=== PATIENT | female | born 1950 | race Caucasian/White ===

== ENCOUNTER → 2023-06-10 13:13 | Outpatient (REF) | payer MEDICARE, SELFPAY ==
[2023-06-10 14:17] LABS: ALT (SGPT) 24 U/L (0-35); AST (SGOT) 24 U/L (14-36); Albumin 4.6 g/dl (3.5-5.0); Alkaline Phosphatase 82 U/L (38-126); Blood Urea Nitrogen 13 mg/dl (7-17); Calcium 9.3 mg/dl (8.4-10.2); Carbon Dioxide 25 mmol/L (22-30); Chloride 101 mmol/L (98-107); Glucose 165 mg/dl (70-99); HDL Cholesterol 54 mg/dl; LDL Cholesterol, Calculated 175 mg/dl; Potassium 4.1 mmol/L (3.5-5.1); Sodium 138 mmol/L (135-145); Total Bilirubin 1.4 mg/dl (0.2-1.3); Total Cholesterol 259 mg/dl (50-199); Total Protein 7.6 g/dl (6.3-8.2); Triglyceride 154 mg/dl (10-149); Very Low Density Lipoprotein 30 mg/dl (0-30); eGFR > 60.00
[2023-06-10 15:47] LABS: Microalbumin, Random Urine 1.4 mg/dl (0.6-1.7)
[2023-06-10 17:23] LABS: Microalbumin/creatinine Ratio 159.1 mg/g
[2023-06-11 12:10] LABS: Glycohemoglobin (HgbA1c) 8.9 % (4.0-5.6)
== END ==
LOC: REG 13:13
PROVIDERS: ATTENDING PHYSICIAN Internal Medicine Endocrinology, Diabetes & Metabolism; FAMILY PHYSICIAN Internal Medicine
DX: E11.21 Type 2 diabetes mellitus with diabetic nephropathy (principal)
CPT/HCPCS: 36415; 80053; 80061; 82043; 82570; 83036

== ENCOUNTER → 2023-10-10 08:13 | Outpatient (REF) | payer MEDICARE, SELFPAY ==
[2023-10-10 09:08] LABS: % Basophils 0.9 % (0-2); % Eosinophils 1.5 % (0-6); % Immature Granulocytes 0.6 % (0-0.5); Absolute Basophils 0.1 10^3/uL (0-0.2); Absolute Eosinophils 0.1 10^3/uL (0-0.7); Absolute Immature Granulocytes 0.1 10^3/uL (0-0.05); Absolute Lymphocytes 2.3 10^3/uL (1.2-3.4); Absolute Monocytes 0.5 10^3/uL (0.1-0.6); Absolute Neutrophils 5.8 10^3/uL (1.4-6.5); Hematocrit 42.4 % (37.0-47.0); Hemoglobin 14.4 g/dL (12.0-16.0); Mean Corpuscular Hgb 29.1 pg (27.0-31.0); Mean Corpuscular Volume 85.8 fL (81.0-99.0); Mean Platelet Volume 9.7 fL (7.4-10.4); Nucleated Red Blood Cells % 0 %; Platelet Count 314 10^3/uL (130-400); Red Blood Cell Count 4.94 10^6/uL (4.20-5.40); Red Cell Dist. Width 12.5 % (11.5-14.5); White Blood Cell Count 8.9 10^3/uL (4.8-10.8)
[2023-10-10 09:56] LABS: ALT (SGPT) 18 U/L (0-35); AST (SGOT) 22 U/L (14-36); Albumin 4.4 g/dl (3.5-5.0); Alkaline Phosphatase 93 U/L (38-126); Blood Urea Nitrogen 15 mg/dl (7-17); Calcium 9.2 mg/dl (8.4-10.2); Carbon Dioxide 26 mmol/L (22-30); Chloride 103 mmol/L (98-107); Glucose 182 mg/dl (70-99); HDL Cholesterol 48 mg/dl; LDL Cholesterol, Calculated 156 mg/dl; Potassium 4.7 mmol/L (3.5-5.1); Sodium 139 mmol/L (135-145); Total Bilirubin 0.5 mg/dl (0.2-1.3); Total Cholesterol 228 mg/dl (50-199); Triglyceride 123 mg/dl (10-149); Very Low Density Lipoprotein 24 mg/dl (0-30); eGFR > 60.00
[2023-10-10 10:12] LABS: TSH Reflex To Free T4 2.36 uIU/ml (0.47-4.68)
[2023-10-11 10:59] LABS: Glycohemoglobin (HgbA1c) 7.1 % (4.0-5.6)
== END ==
LOC: REG 08:13
PROVIDERS: ATTENDING PHYSICIAN Internal Medicine; REFERRING PHYSICIAN Internal Medicine Endocrinology, Diabetes & Metabolism
DX: I10 Essential (primary) hypertension (principal); E11.29 Type 2 diabetes mellitus with other diabetic kidney complication; E78.2 Mixed hyperlipidemia; R07.9 Chest pain, unspecified
CPT/HCPCS: 36415; 80053; 80061; 83036; 84443; 85025

== ENCOUNTER → 2023-12-26 14:24 | Outpatient (REF) | payer MEDICARE, SELFPAY | LOC: HWWDC 14:24 | PROVIDERS: ATTENDING PHYSICIAN Internal Medicine | DX: Z12.31 Encounter for screening mammogram for malignant neoplasm of breast (principal) | CPT/HCPCS: 77063; 77067 ==

== ENCOUNTER → 2024-02-09 13:14 | Outpatient (REF) | payer MEDICARE, SELFPAY ==
[2024-02-09 14:31] LABS: ALT (SGPT) 23 U/L (0-35); AST (SGOT) 24 U/L (14-36); Albumin 4.4 g/dl (3.5-5.0); Alkaline Phosphatase 80 U/L (38-126); Blood Urea Nitrogen 12 mg/dl (7-17); Carbon Dioxide 30 mmol/L (22-30); Chloride 102 mmol/L (98-107); Glucose 156 mg/dl (70-99); HDL Cholesterol 52 mg/dl; LDL Cholesterol, Calculated 134 mg/dl; Potassium 4.7 mmol/L (3.5-5.1); Sodium 142 mmol/L (135-145); Total Bilirubin 0.7 mg/dl (0.2-1.3); Total Cholesterol 208 mg/dl (50-199); Total Protein 6.9 g/dl (6.3-8.2); Triglyceride 113 mg/dl (10-149); Very Low Density Lipoprotein 22 mg/dl (0-30); eGFR > 60.00
== END ==
LOC: REG 13:14
PROVIDERS: ATTENDING PHYSICIAN Internal Medicine Endocrinology, Diabetes & Metabolism; FAMILY PHYSICIAN Internal Medicine
DX: E11.21 Type 2 diabetes mellitus with diabetic nephropathy (principal)
CPT/HCPCS: 36415; 80053; 80061; 83036

== ENCOUNTER → 2024-05-27 09:57 | Outpatient (REF) | payer MEDICARE, SELFPAY ==
[2024-05-27 11:23] LABS: Glycohemoglobin (HgbA1c) 7.3 % (4.0-5.6)
[2024-05-27 12:07] LABS: ALT (SGPT) 34 U/L (0-35); AST (SGOT) 28 U/L (14-36); Albumin 4.5 g/dl (3.5-5.0); Alkaline Phosphatase 78 U/L (38-126); Blood Urea Nitrogen 13 mg/dl (7-17); Calcium 9.5 mg/dl (8.4-10.2); Carbon Dioxide 26 mmol/L (22-30); Chloride 103 mmol/L (98-107); Glucose 132 mg/dl (70-99); HDL Cholesterol 53 mg/dl; LDL Cholesterol, Calculated 106 mg/dl; Sodium 138 mmol/L (135-145); Total Bilirubin 0.9 mg/dl (0.2-1.3); Total Cholesterol 177 mg/dl (50-199); Total Protein 6.9 g/dl (6.3-8.2); Triglyceride 94 mg/dl (10-149); Very Low Density Lipoprotein 18 mg/dl (0-30); eGFR > 60.00
== END ==
LOC: REG 09:57
PROVIDERS: ATTENDING PHYSICIAN Internal Medicine Cardiovascular Disease; FAMILY PHYSICIAN Internal Medicine; REFERRING PHYSICIAN Internal Medicine Endocrinology, Diabetes & Metabolism
DX: E78.00 Pure hypercholesterolemia, unspecified (principal); E11.21 Type 2 diabetes mellitus with diabetic nephropathy
CPT/HCPCS: 36415; 80053; 80061; 83036

== ENCOUNTER → 2024-06-11 13:30 | Outpatient (REF) | payer MEDICARE, SELFPAY | LOC: HWRAD 13:30 | PROVIDERS: ATTENDING PHYSICIAN Internal Medicine Endocrinology, Diabetes & Metabolism; FAMILY PHYSICIAN Internal Medicine | DX: M25.551 Pain in right hip (principal) | CPT/HCPCS: 73502 ==

== ENCOUNTER → 2024-10-08 10:31 | Outpatient (REF) | payer MEDICARE, SELFPAY ==
[2024-10-08 11:54] LABS: Microalb - Urine Creatinine 188.600 mg/dl
[2024-10-08 11:57] LABS: ALT (SGPT) 22 U/L (0-35); AST (SGOT) 22 U/L (14-36); Albumin 4.7 g/dl (3.5-5.0); Alkaline Phosphatase 72 U/L (38-126); Blood Urea Nitrogen 16 mg/dl (7-17); Calcium 10.1 mg/dl (8.4-10.2); Carbon Dioxide 27 mmol/L (22-30); Chloride 108 mmol/L (98-107); Glucose 133 mg/dl (70-99); Potassium 4.7 mmol/L (3.5-5.1); Sodium 140 mmol/L (135-145); Total Protein 7.4 g/dl (6.3-8.2); eGFR > 60.00
[2024-10-08 12:10] LABS: Glycohemoglobin (HgbA1c) 7.3 % (4.0-5.6)
[2024-10-08 13:30] LABS: Microalbumin, Random Urine > 57.0 mg/dl (0.6-1.7)
== END ==
LOC: REG 10:31
PROVIDERS: ATTENDING PHYSICIAN Internal Medicine Endocrinology, Diabetes & Metabolism; FAMILY PHYSICIAN Internal Medicine
DX: E11.21 Type 2 diabetes mellitus with diabetic nephropathy (principal)
CPT/HCPCS: 36415; 80053; 82043; 82570; 83036

== ENCOUNTER → 2025-01-28 10:27 | Outpatient (REF) | payer MEDICARE, SELFPAY ==
[2025-01-28 12:00] LABS: ALT (SGPT) 22 U/L (0-35); AST (SGOT) 23 U/L (14-36); Albumin 4.4 g/dl (3.5-5.0); Alkaline Phosphatase 68 U/L (38-126); Blood Urea Nitrogen 15 mg/dl (7-17); Calcium 9.4 mg/dl (8.4-10.2); Carbon Dioxide 30 mmol/L (22-30); Chloride 102 mmol/L (98-107); Glucose 159 mg/dl (70-99); Glycohemoglobin (HgbA1c) 7.0 % (4.0-5.9); HDL Cholesterol 60 mg/dl; LDL Cholesterol, Calculated 152 mg/dl; Potassium 4.9 mmol/L (3.5-5.1); Sodium 136 mmol/L (135-145); Total Protein 7.4 g/dl (6.3-8.2); Very Low Density Lipoprotein 20 mg/dl (0-30); eGFR > 60.00
[2025-01-28 12:14] LABS: Microalb - Urine Creatinine 115.200 mg/dl
[2025-01-28 12:18] LABS: Microalbumin, Random Urine 5.8 mg/dl (0.6-1.7)
== END ==
LOC: REG 10:27
PROVIDERS: ATTENDING PHYSICIAN Internal Medicine Endocrinology, Diabetes & Metabolism; FAMILY PHYSICIAN Internal Medicine
DX: E11.21 Type 2 diabetes mellitus with diabetic nephropathy (principal)
CPT/HCPCS: 36415; 80053; 80061; 82043; 82570; 83036